=== PATIENT | female | born 1995 | race Caucasian/White ===

== ENCOUNTER 2024-01-25 21:31 | Emergency (ER) | payer SELFPAY ==
[2024-01-25] MEDS ORDERED: ONDANSETRON 4 MG/2 ML VIAL ONE (22:32)
[2024-01-25] MEDS ORDERED: NA CHLORIDE 0.9% 1,000 ML ONE (22:32)
[2024-01-25 23:03] LABS: Specific Gravity 1.014 (1.005-1.030)
[2024-01-25 23:08] LABS: Specific Gravity 1.014 (1.005-1.030); Sqamous Epithelial <5 /HPF (None Seen); Urine Bacteria None Seen /HPF (<20); Urine Bilirubin NEGATIVE (Negative); Urine Blood Negative (Negative); Urine Clarity Turbid (Clear); Urine Color Light-Yellow (Yellow); Urine Culture Reflex Order NOT NEEDED; Urine Glucose NEGATIVE (Negative); Urine Ketones NEGATIVE (Negative); Urine Microscopic Reflex YN ORDER UMIC; Urine Mucus Slight /HPF (None Seen); Urine Nitrite NEGATIVE (Negative); Urine Protein NEGATIVE (Negative); Urine RBC <5 /HPF (None Seen); Urine Urobilinogen Normal (Normal); Urine WBC <5 /HPF (<5); Urine pH 6.5 (5.0-7.0)
[2024-01-25 23:13] LABS: Barbiturates POSITIVE (NEGATIVE); Benzodiazepines POSITIVE (NEGATIVE); Cocaine POSITIVE (NEGATIVE); METHAMPHETAM NEGATIVE (NEGATIVE); Methadone NEGATIVE (NEGATIVE); Opiates NEGATIVE (NEGATIVE); Phencyclidine NEGATIVE (NEGATIVE); THC Cannibis NEGATIVE (NEGATIVE)
[2024-01-25 23:39] LABS: Absolute Eosinophils 0.2 K/uL (0-0.5); Absolute Lymphocytes (CBC) 2.1 K/uL (0.7-4.9); Absolute Monocytes 0.7 K/uL (0.1-1.3); Absolute Neutrophil 4.4 K/uL (1.8-8.0); Basophils % 0.3 % (0-1.3); Eosinophils % 2.5 % (0-4.4); Hematocrit 40.6 % (36.0-45.0); Hemoglobin 13.3 g/dL (12.0-15.0); Lymphocytes % 28.2 % (15.3-44.8); MCH 29.6 pg (27.0-35.0); MCHC 32.6 g/dL (32.0-36.0); MCV 90.8 fL (80-100); MPV 8.3 fL (7.6-11.3); Monocytes % 9.4 % (3.3-12.3); Neutrophils % 59.6 % (41.7-73.7); Nucleated Red Blood Cells % 0.2 % (0-0); Platelets 275 thou/uL (152-406); RBC Red Blood Cell Count 4.47 M/uL (3.86-4.86); Red Cell Distribution Width 14.2 % (12.1-15.2)
[2024-01-25 23:50] LABS: Albumin/Globulin Ratio 0.8 (1.1-1.8); Anion Gap 7.3 mEq/L (5.0-15.0); Bilirubin Total 0.2 mg/dL (0.2-1.0); Globulin 3.7 g/dL (2.3-3.5); Potassium 3.3 mEq/L (3.5-5.1); Protein, Total 6.7 g/dL (6.4-8.2)
[2024-01-26] MEDS ORDERED: LEVETIRACETAM 500 MG/5 ML VIAL IV ONE (00:44)
[2024-01-26] MEDS ORDERED: NA CHLORIDE 0.9% 0 ML ONE (00:44)
--- NOTE | 2024-01-26 00:47 | ER ---
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 Had a seizure at home and another one in the parking lot. Coronavirus screen: Client denies travel out of the [place] in the last 14 days. At this time, the client does not indicate any symptoms associated with coronavirus-19. Ebola Screen: Patient negative for fever greater than or equal to 101.5 degrees Fahrenheit, and additional compatible Ebola Virus Disease symptoms Patient denies exposure to infectious person. Patient denies travel to an Ebola-affected area in the 21 days before illness onset. No symptoms or risks identified at this time. Initial Sepsis Screen: Does the patient meet any 2 criteria? No. Patient's initial sepsis screen is negative. Does the patient have a suspected source of infection? No. Patient's initial sepsis screen is negative. Risk Assessment: Do you want to hurt yourself or someone else? Patient reports no desire to harm self or others. Onset of symptoms was January 25, 2024. 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 - Infectious Disease History:: Denies. - Social history:: Smoking status: Reported history of juuling and/or vaping. - Family history:: not pertinent. Screenin:14 [facility] ED Fall Risk Assessment (Adult) History of falling in the last 3 months, vc1 including since admission No falls in past 3 months (0 pts) Confusion or Disorientation No (0 pts) Intoxicated or Sedated No (0 pts) Impaired Gait No (0 pts) Mobility Assist Device Used No (0 pt) Altered Elimination No (0 pt) Score/Fall Risk Level 0 - 2 = Low Risk Oriented to surroundings, Maintained a safe environment, Educated pt \T\ family on fall prevention, incl call for assistance when getting out of bed. Abuse screen: Denies threats or abuse. Nutritional screening: No deficits noted. Tuberculosis screening: No symptoms or risk factors identified. Assessment: 22:26 Reassessment: Patient appears in no apparent distress at this time. Patient and/or bm8 family updated on plan of care and expected duration. Pain level reassessed. Patient is alert, oriented x 3, equal unlabored respirations, skin warm/dry/pink. General: Appears in no apparent distress. comfortable, Behavior is listless. Pain: Denies pain. Neuro: Level of Consciousness is lethargic, Oriented to none. Cardiovascular: Heart tones S1 S2 present Capillary refill < 3 seconds in bilateral fingers toes Patient's skin is warm and dry. Respiratory: Airway is patent Respiratory effort is even, unlabored, Respiratory pattern is regular, symmetrical, Breath sounds are clear bilaterally. GI: No signs and/or symptoms were reported involving the gastrointestinal system. : No signs and/or symptoms were reported regarding the genitourinary system. EENT: No signs and/or symptoms were reported regarding the EENT system. Derm: No signs and/or symptoms reported regarding the dermatologic system. Musculoskeletal: No signs and/or symptoms reported regarding the musculoskeletal system. 23:16 Reassessment: Patient appears in no apparent distress at this time. Patient and/or bm8 family updated on plan of care and expected duration. Pain level reassessed. Patient is alert, oriented x 3, equal unlabored respirations, skin warm/dry/pink. Patient denies pain at this time. Patient states feeling better. Patient states symptoms have improved. General: Appears in no apparent distress. comfortable, Behavior is calm, cooperative, agitated. Pain: Denies pain. Neuro: No deficits noted. 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 Full function Speech is normal, Facial symmetry appears normal, Pupils are PERRLA, Pupil Size: 3 mm Intact. 01/25 00:42 Reassessment: Patient appears in no apparent distress at this time. No changes from bm8 previously documented assessment. Patient and/or family updated on plan of care and expected duration. Pain level reassessed. Patient is alert, oriented x 3, equal unlabored respirations, skin warm/dry/pink. Patient denies pain at this time. Patient states feeling better. Patient states symptoms have improved. Vital Signs: 01/24 22:04 BP 114 / 87; Pulse 92; Resp 12; Temp 98.6; Pulse Ox 100% ; Weight 38.56 kg; Height 5 vc1 ft. 3 in. ; Pain 0/10; 23:16 BP 107 / 89; Pulse 92; Resp 14; Temp 98.6; Pulse Ox 100% ; Pain 0/10; bm8 01/25 00:42 BP 109 / 82; Pulse 91; Resp 16; Temp 98.6; Pulse Ox 98% ; Pain 0/10; bm8 01/24 22:04 Body Mass Index 15.06 (38.56 kg, 160.02 cm) vc1 01/24 22:04 Pain Scale: Adult vc1 23:16 Pain Scale: Adult bm8 01/25 00:42 Pain Scale: Adult bm8 [place] Coma Score: 01/24 22:26 Eye Response: to pain(2). Motor Response: localizes pain(5). Verbal Response: bm8 incomprehensible(2). Total: 9. 23:16 Eye Response: to voice(3). Motor Response: obeys commands(6). Verbal Response: bm8 oriented(5). Total: 14. 01/25 00:42 Eye Response: to voice(3). Motor Response: obeys commands(6). Verbal Response: bm8 oriented(5). Total: 14. 20:37 Eye Response: spontaneous(4). Motor Response: obeys commands(6). Verbal Response: sp4 oriented(5). Total: 15. ED Course: 01/24 21:35 Patient arrived in ED. rv1 21:35 Giovanni Pelletier MD is Attending Physician. sp4 22:12 Triage completed. vc1 22:14 Arm band placed on right wrist. vc1 22:14 Patient has correct armband on for positive identification. Bed in low position. Call vc1 light in reach. incendiaries supervisor on. Pulse ox on. NIBP on. 22:25 Jaswinder Osorio, RN is Primary Nurse. bm8 22:26 Maintain EMS IV. Dressing intact. Good blood return noted. Site clean \T\ dry. Gauge \T\ vc 1 site: 20 right AC. 22:26 Maintain EMS IV. Flushed with 10 mL NS. bm8 22:54 Urine Drug Screen Sent. al5 22:54 Test, Urine Sent. al5 22:54 Urinalysis w/ reflexes Sent. al5 23:23 CT Head Brain wo Cont In Process Unspecified. EDMS 01/25 01:02 Provided Education on: post ER care, narcotics anonymous recommendation, pt instructed bm8 to stop doing drugs. 01:02 No provider procedures requiring assistance completed. IV discontinued, intact, bm8 bleeding controlled, No redness/swelling at site. Pressure dressing applied. Administered Medications: 01/24 22:45 Drug: NS 0.9% IV 1000 ml IV at 1000 ml once; to be given as a bolus over 60 minutes bm8 Route: IV; Rate: 1000 ml; Site: right antecubital; 01/25 00:43 Follow up: Response: No adverse reaction; IV Status: Completed infusion; IV Intake: bm8 1000ml 01/24 22:45 Drug: Ondansetron IVP 4 mg IVP once; over 2 minutes Route: IVP; Site: right antecubital;bm8 23:16 Follow up: Response: No adverse reaction bm8 01/25 00:50 CANCELLED (Physician Discretion): [id number] mg IV at calculated rate once vc1 Medication: 01/24 22:26 VIS not applicable for this client. bm8 Intake: 01/25 00:43 IV: 1000ml; Total: 1000ml. bm8 Outcome: 00:46 Discharge ordered by . sp4 01:02 Discharged to home ambulatory, bm8 01:02 Condition: stable 01:02 Discharge instructions given to patient, family, Instructed on discharge instructions, follow up and referral plans. no drinking with medication, no driving heavy equipment, medication usage, Demonstrated understanding of instructions, follow-up care, medications, Prescriptions given X 1, 01:05 Patient left the ED. bm8 Signatures: Dispatcher [employer] EDMS Blanca Farnsworth RN RN vc1 Carlee Moore rv1 Giovanni Pelletier MD MD sp4 Jaswinder Osorio RN RN bm8 Dena Desai RN RN al5 Corrections: (The following items were deleted from the chart) 01/24 22:14 22:12 Allergies: No Known Allergies; vc1 vc1
--- NOTE | 2024-01-26 00:48 | EDPHYS ---
Physician Documentation [facility] Name: Erendira Reyes Age: 28 yrs Sex: Female : 1995 Arrival Date: 01/25/2024 Time: 21:31 Bed 8 Private MD: ED Physician Giovanni Pelletier HPI: 01/24 21:35 This 28 yrs old Female presents to ER via Unassigned with complaints of sp4 seizure. 01/25 20:37 28-year-old female arrived with reported seizure by EMS. Patient has had seizure on the sp4 EMS unit and was given Ativan 2 mg IV. This has aborted the seizure. Patient denied history of denied drug use.. 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 - Infectious Disease History:: Denies. - Social history:: Smoking status: Reported history of juuling and/or vaping. - Family history:: not pertinent. ROS: 01/25 20:37 Constitutional: Negative for fever, chills, and weight loss, positive seizures sp4 All other systems are negative, Exam: 20:37 Constitutional: This is a well developed, well nourished patient who is awake, alert, sp4 and in no acute distress. Positive for somnolence secondary to recent Ativan injection by EMS Head/Face: Normocephalic, atraumatic. Eyes: Pupils equal round and reactive to light, extra-ocular motions intact. Lids and lashes normal. Conjunctiva and sclera are not injected. Cornea within normal limits. Periorbital areas with no swelling, redness, or edema. ENT: Nares patent. No nasal discharge, no septal abnormalities noted. Tympanic membranes are normal and external auditory canals are clear. Oropharynx with no redness, swelling, or masses, exudates, or evidence of obstruction, uvula midline. Mucous membranes moist. Neck: Trachea midline, no thyromegaly or masses palpated, and no cervical lymphadenopathy. Supple, full range of motion without nuchal rigidity, or vertebral point tenderness. Chest/axilla: Normal chest wall appearance and motion. Nontender with no deformity. No lesions are appreciated. Cardiovascular: Regular rate and rhythm with a normal S1 and S2. No gallops, murmurs, or rubs. Normal PMI, no JVD. No pulse deficits. Respiratory: Lungs have equal breath sounds bilaterally, clear to auscultation and percussion. No rales, rhonchi or wheezes noted. No increased work of breathing, no retractions or nasal flaring. Abdomen/GI: Soft, with normal bowel sounds. No distension or tympany. No guarding or rebound. No evidence of tenderness throughout. Back: No spinal tenderness. No costovertebral tenderness. Skin: Warm, dry with normal turgor. Normal color with no rashes, no lesions, and no evidence of cellulitis. MS/ Extremity: Pulses equal, no cyanosis. Neurovascular intact. Full, normal range of motion. Neuro: Awake and alert, GCS 15, oriented to person, place, time, and situation. Cranial nerves II-XII grossly intact. Motor strength 5/5 in all extremities. Sensory grossly intact. Psych: Awake, alert, with orientation to person, place and time. Behavior, mood, and affect are within normal limits Vital Signs: 01/24 22:04 BP 114 / 87; Pulse 92; Resp 12; Temp 98.6; Pulse Ox 100% ; Weight 38.56 kg; Height 5 vc1 ft. 3 in. ; Pain 0/10; 23:16 BP 107 / 89; Pulse 92; Resp 14; Temp 98.6; Pulse Ox 100% ; Pain 0/10; bm8 01/25 00:42 BP 109 / 82; Pulse 91; Resp 16; Temp 98.6; Pulse Ox 98% ; Pain 0/10; bm8 01/24 22:04 Body Mass Index 15.06 (38.56 kg, 160.02 cm) vc1 01/24 22:04 Pain Scale: Adult vc1 23:16 Pain Scale: Adult bm8 01/25 00:42 Pain Scale: Adult bm8 [place] Coma Score: 01/24 22:26 Eye Response: to pain(2). Motor Response: localizes pain(5). Verbal Response: bm8 incomprehensible(2). Total: 9. 23:16 Eye Response: to voice(3). Motor Response: obeys commands(6). Verbal Response: bm8 oriented(5). Total: 14. 01/25 00:42 Eye Response: to voice(3). Motor Response: obeys commands(6). Verbal Response: bm8 oriented(5). Total: 14. 20:37 Eye Response: spontaneous(4). Motor Response: obeys commands(6). Verbal Response: sp4 oriented(5). Total: 15. MDM: 01/24 21:48 Medical Screening Exam initiated sp4 01/25 00:36 ED course: EXAM DESCRIPTION: CT of the head without contrast CLINICAL HISTORY: SEIZURE sp4 COMPARISON: None available TECHNIQUE: Axial CT of the head obtained from the skull apex to the skull base without contrast. This exam was performed according to our departmental dose-optimization program, which includes automated exposure control, adjustment of the mA and/or kV according to patient size and/or use of iterative reconstruction technique. FINDINGS: No acute intracranial hemorrhage identified. No mass, mass effect, shift of the midline, abnormal extra-axial fluid collection or CT evidence of acute ischemic change identified. The ventricular system is unremarkable. No acute abnormalities of the supratentorial white matter, basal ganglia, cerebellum, or brainstem. The visualized paranasal sinuses and the mastoids are relatively well aerated. No skull fracture identified. Visualized orbits and globes are unremarkable. IMPRESSION: 1. No acute intracranial abnormality identified.. 20:37 Differential diagnosis: cerebral vascular accident, drug overdose, cardiac arrhythmia, sp4 seizure, TIA, Drug abuse.. Data reviewed: vital signs, nurses notes, EMS record, lab test result(s), EKG, radiologic studies, CT scan. 20:41 Consideration of Admission/Observation Escalation of care including sp4 admission/observation considered. ED course: Patient tested positive for cocaine which is likely the source of induced seizure. Patient was strongly advised to stay away from high-grade stimulants including cocaine. Patient was prescribed as needed lorazepam for recurrent seizure. Otherwise we do not feel that patient needs antiepileptics.. 01/24 21:40 Order name: CBC with Diff; Complete Time: 00:25 [facility] 01/24 21:40 Order name: CMP; Complete Time: 00:25 [facility] 01/24 21:40 Order name: Lipase; Complete Time: 00:25 [facility] 01/24 21:40 Order name: Test, Urine; Complete Time: 00:25 [facility] 01/24 21:40 Order name: Urinalysis w/ reflexes; Complete Time: 00:25 [facility] 01/24 21:40 Order name: Urine Drug Screen; Complete Time: 00:25 [facility] 01/24 21:56 Order name: Lactate w/ 2H reflex if indic.; Complete Time: 00:25 [facility] 01/24 22:48 Order name: Creatine Phosphokinase; Complete Time: 00:25 EDMS 01/24 21:56 Order name: CT Head Brain wo Cont [facility] 01/24 21:40 Order name: IV Saline Lock; Complete Time: 22:28 [facility] 01/24 21:40 Order name: Labs collected and sent; Complete Time: 22:28 [facility] 01/24 22:46 Order name: Misc. Order: RECOLLECT ALL LABS; Complete Time: 23:14 1 01/24 22:55 Order name: Straight Cath - Urine; Complete Time: 22:55 bm8 Administered Medications: 01/24 22:45 Drug: NS 0.9% IV 1000 ml IV at 1000 ml once; to be given as a bolus over 60 minutes bm8 Route: IV; Rate: 1000 ml; Site: right antecubital; 01/25 00:43 Follow up: Response: No adverse reaction; IV Status: Completed infusion; IV Intake: bm8 1000ml 01/24 22:45 Drug: Ondansetron IVP 4 mg IVP once; over 2 minutes Route: IVP; Site: right antecubital;bm8 23:16 Follow up: Response: No adverse reaction bm8 01/25 00:50 CANCELLED (Physician Discretion): [id number] mg IV at calculated rate once vc1 Disposition Summary: 01/26/24 00:46 Discharge Ordered Notes: Location: Home sp4 Problem: new sp4 Symptoms: have improved sp4 Condition: Stable sp4 Diagnosis - Other seizures sp4 - 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, 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 sp4 Followup: sp4 - With: Private Physician - When: 7 - 10 days - Reason: Recheck today's complaints Discharge Instructions: - Discharge Summary Sheet sp4 - Seizure, Adult sp4 Forms: - Patient Portal Instructions sp4 Prescriptions: - Ativan 1 mg Oral tablet - take 1 tablet ORAL route once daily As needed PRN seizure; 12 tablet; Refills: sp4 0, Product Selection Permitted Signatures: Dispatcher [employer] EDMS Blanca Farnsworth, RN RN vc1 Carlee Moore1 Giovanni Pelletier MD MD sp4 Jaswinder Osorio RN RN bm8 Corrections: (The following items were deleted from the chart) 01/24 21:40 21:40 CBC+H.LAB.BRZ ordered. EDMS EDMS 21:40 21:40 COMPREHENSIVE METABOLIC PANEL+C.LAB.BRZ ordered. EDMS EDMS 21:40 21:40 LIPASE+C.LAB.BRZ ordered. EDMS EDMS 21:40 21:40 Test, Urine+UC.LAB.BRZ ordered. EDMS EDMS 21:40 21:40 Urinalysis+U.LAB.BRZ ordered. EDMS EDMS 21:40 21:40 URINE DRUG SCREEN+UC.LAB.BRZ ordered. EDMS EDMS 21:56 21:56 LACTATE+C.LAB.BRZ ordered. EDMS EDMS 22:14 22:12 Allergies: No Known Allergies; vc1 vc1 22:48 21:56 CREATINE PHOSPHOKINASE+C.LAB.BRZ ordered. EDMS EDMS 01/25 00:50 00:23 Keppra IV 1000 mg IV at calculated rate once ordered. sp4 vc1 00:50 00:50 Keppra IV 1000 mg IV at calculated rate once ordered. vc1 vc1
[2024-01-26 01:26] VITALS: TEMP 98.6
[2024-01-26 01:28] VITALS: BP 109/82; O2SAT 98
--- NOTE | 2024-01-26 01:42 | RAD REPORT ---
EXAM DESCRIPTION: CT of the head without contrast CLINICAL HISTORY: SEIZURE COMPARISON: None available TECHNIQUE: Axial CT of the head obtained from the skull apex to the skull base without contrast. This exam was performed according to our departmental dose-optimization program, which includes automated exposure control, adjustment of the mA and/or kV according to patient size and/or use of it erative reconstruction technique. FINDINGS: No acute intracranial hemorrhage identified. No mass, mass effect, shift of the midline, abnormal ext ra-axial fluid collection or CT evidence of acute ischemic change identified. The ventricular system is unremarkable. No acute abnormalities of the supratentorial white matter, basal ganglia, c erebellum, or brainstem. The visualized paranasal sinuses and the mastoids are relatively well aerated. No skull fracture id entified. Visualized orbits and globes are unremarkable. IMPRESSION: 1. No acute intracranial abnormality identified. Electronically signed by: Femi Keith DO 01/26/2024 12:14 AM [facility] 4ZDM Due to temporary technical issues with the PACS/[employer] reporting system, reports are being rudolph d by the in-house radiologist without review as a courtesy to ensure prompt reporting the interpreting radiologist is fully responsible for the content of the report. Transcribed Date/Time: 01/26/2024 1:42 AM
== END 2024-01-26 01:05 | disposition home or self-care (01) ==
LOC: ER 21:31
DX: G40.509 Epileptic seizures related to external causes, not intractable, without status epilepticus (principal)
CPT/HCPCS: 36415; 70450; 80053; 80307; 81001; 81025; 82550; 83605; 83690; 85025; J1953; J2405; J7030